=== PATIENT | female | born 1995 | race Caucasian/White ===

== ENCOUNTER 2016-06-18 19:46 | Emergency (ER) | payer OTHER ==
[~2016-06-18] VITALS: Ht 149.9 cm; Wt 56.2 kg
[2016-06-18 19:54] VITALS: BP 122/83
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
--- NOTE | 2016-06-18 21:09 | RADIOLOGY REPORT ---
EXAMINATION: XR KNEE, BILATERAL CLINICAL INFORMATION: Bilateral knee pain COMPARISON: None TECHNIQUE: Four views of the bilateral knees. FINDINGS: Left knee; No effusion is seen. No fracture or dislocation. No bony erosion. No degeneration. The joint spaces appear well-preserved. Right knee; No effusion. No degeneration or bony erosion is seen. Joint spaces are preserved. IMPRESSION: No bony finding in the knees. No effusion is seen.
[2016-06-18] MEDS ORDERED: LEXAPRO5 M1 PO (21:25)
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
[2016-06-18] MEDS ORDERED: CLARITIN10 M1 PO (21:26)
[2016-06-18] MEDS ORDERED: ADVAIR HFA 115-12 GM INH (21:26)
[2016-06-18] MEDS ORDERED: CYCLOBENZAPRINE10 M1 PO (21:43)
[2016-06-18] MEDS ORDERED: IBUPROFEN600 M1 PO (21:43)
== END 2016-06-18 21:51 ==
LOC: ERH 19:46
DX: S16.1XXA Strain of muscle, fascia and tendon at neck level, initial encounter (principal); S06.0X0A Concussion without loss of consciousness, initial encounter; V47.0XXA Car driver injured in collision with fixed or stationary object in nontraffic accident, initial encounter; Y92.410 Unspecified street and highway as the place of occurrence of the external cause
CPT/HCPCS: 73564-50